=== PATIENT | female | born 1995 | race Two or more races ===

== ENCOUNTER 2016-07-19 18:47 | Emergency (ER) | payer MEDICAID ==
[~2016-07-19] VITALS: Ht 154.9 cm; Wt 59.0 kg
[~2016-07-19 18:47] MED LIST: AMOXICILLIN500 MG ORAL; CEPHALEXIN500 MG ORAL; CIPROFLOXACIN500 M2 ORAL; IBUPROFEN600 MG ORAL; METRONIDAZOLE500 MG ORAL; NKM; NORCO 5-325 TA1 EACH ORAL; PROMETHAZINE-P118 M1 PO; TYLENOL325 MG ORAL; ZITHROMAX250 MG ORAL
[2016-07-19 20:35] LABS: APPEARANCE,URINE CLOUDY; KETONES,URINE NEGATIVE (NEGATIVE); LEUKOCYTE ESTERASE ,URINE 3+ (NEGATIVE); NITRITE,URINE POSITIVE (NEGATIVE); PH,URINE 8 (4.5-8.0); PROTEIN,URINE 1+ (NEGATIVE); UROBILINOGEN,URINE NORMAL MG/DL (0.0-1.0)
[2016-07-19] MEDS ORDERED: Azithromycin 250mg tab ORAL ONE (20:45)
[2016-07-19] MEDS ORDERED: NITROFURANTOIN100 M2 ORAL (20:45)
[2016-07-19] MEDS ORDERED: Lidocaine 1% MPF 10mg/ml 5ml ONE (20:52)
[2016-07-19 20:53] LABS: AMORPHOUS SEDIMENT,UR MANY /LPF; BACTERIA,URINE MANY /HPF; RBC,URINE 0-2 /HPF (0 - 2); SQUAMOUS EPITHELIAL CELL,UR OCCASIONAL /LPF (NONE/OCC); WBC,URINE 40-60 /HPF (0 - 2)
[2016-07-19 20:54] LABS: TRIPLE PHOSPHATE CRYSTAL,UR FEW /LPF
[2016-07-19 21:04] VITALS: BP 105/69
--- NOTE | 2016-07-19 22:33 | Emergency Room Report ---
History of Present Illness General Chief Complaint: Female Urogenital Problems Source: Patient Present Illness HPI The patient is a 21-year-old female presenting with dysuria and vaginal discharge which began one week prior. The patient states that she experiences an 8/10 burning sensation to the vaginal area which occurs only with urination. The patient has also experienced a green vaginal discharge. The patient has been active with one male partner but denies knowing if the patient has an STD. The patient denies any abdominal or flank pain. Patient denies nausea, vomiting, fever, chills, hematuria Allergies: Coded Allergies: No Known Allergies (Unverified , 10/17/13) Patient History Past Medical History: see triage record Pertinent Family History: none Last Menstrual Period: 07/04/16 Now: No Reviewed Nursing Documentation: PMH: Agreed, PSxH: Agreed Nursing Documentation-PMH Hx Gastrointestinal Problems: Yes - KIDNEY STONE Review of Systems All Other Systems: negative except mentioned in HPI Physical Exam Vital Signs Date Time Temp Pulse Resp B/P Pulse Ox O2 Delivery O2 Flow Rate FiO2 07/19/16 19:29 97.9 79 15 105/69 100 Room Air Sp02 EP Interpretation: reviewed, normal General Appearance: no apparent distress, alert, GCS 15, non-toxic Head: normocephalic, atraumatic Eyes: bilateral eye PERRL, bilateral eye normal inspection ENT: hearing grossly normal, normal pharynx, no angioedema, normal voice Neck: full range of motion, supple/symm/no masses Gastrointestinal: normal bowel sounds, soft, non-distended, no guarding, no rebound, tenderness - Epigastric Genitourinary: normal inspection, no CVA tenderness Musculoskeletal: back normal, gait/station normal, normal range of motion, non- tender Neurologic: alert, oriented x3, responsive, motor strength/tone normal, sensory intact, speech normal Psychiatric: judgement/insight normal, memory normal, mood/affect normal, no suicidal/homicidal ideation Skin: normal color, no rash, warm/dry, well hydrated Lymphatic: no adenopathy Medical Decision Making PA Attestation Dr. Heranndez is my supervising physician. Patient management was discussed with my supervising physician Diagnostic Impression: Primary Impression: UTI (urinary tract infection) ER Course The patient is a 21-year-old female presenting with dysuria and vaginal discharge which began one week prior. Differential diagnosis considered but not limited to: UTI, vaginitis, pyelonephritis, pyelonephrosis, STD, PID, ectopic PE: Vitals within normal limits. No apparent distress. Abdominal exam is remarkable for suprapubic tenderness. Otherwise exam is unremarkable The patient is treated for STD with azithromycin and Rocephin. Urinalysis is consistent with UTI The patient will be discharged home with a prescription for Macrobid. ER precautions are given Laboratory Tests Test 07/19/16 19:43 Urine Color Pale yellow Urine Appearance Cloudy Urine pH 8 (4.5-8.0) Urine Specific [place] 1.015 (1.005-1.035) Urine Protein 1+ (NEGATIVE) H Urine Glucose (UA) Negative (NEGATIVE) Urine Ketones Negative (NEGATIVE) Urine Occult Blood 1+ (NEGATIVE) H Urine Nitrite Positive (NEGATIVE) H Urine Bilirubin Negative (NEGATIVE) Urine Urobilinogen Normal MG/DL (0.0-1.0) Urine Leukocyte Esterase 3+ (NEGATIVE) H Urine RBC 0-2 /HPF (0 - 2) Urine WBC 40-60 /HPF (0 - 2) H Urine Squamous Epithelial Cells Occasional /LPF Urine Triple Phosphate Crystals Few /LPF (NONE) H Urine Amorphous Sediment Many /LPF (NONE) H Urine Bacteria Many /HPF (NONE) H Urine HCG, Qualitative Negative Lab Results Impression Positive nitrites and many white blood cells with many bacteria Last Vital Signs Date Time Temp Pulse Resp B/P Pulse Ox O2 Delivery O2 Flow Rate FiO2 07/19/16 21:04 97.8 79 15 105/69 100 Room Air Status: improved Disposition: HOME, SELF-CARE Condition: Improved Scripts Nitrofurantoin Monohyd/M-Cryst* (MACROBID 100 MG*) 100 Mg Capsule 100 MG ORAL EVERY 12 HOURS, #14 CAP Prov: EMORY COONEY 07/19/16 Referrals: [facility],REFERR[facility] (PCP) Patient Instructions: Urinary Tract Infection Additional Instructions: I discussed my findings with the patient. All questions and concerns have been answered. Treatment and medication compliance have been addressed. I advised the patient that they need to follow up with PMD in 3-5 days. Return to ED if symptoms worsen, new symptoms arise, or if needed for any reason. Patient verbalized understanding of discharge instructions. EMORY COONEY Jul 19, 2016 22:33
== END 2016-07-19 21:08 | disposition home or self-care (01) ==
LOC: EMR 20:55
DX: N39.0 Urinary tract infection, site not specified (principal); Z87.442 Personal history of urinary calculi
CPT/HCPCS: 81003; 81025; 87086; 87181; 96372; 99283; J0696; Q0144

== ENCOUNTER 2017-10-05 13:47 | Emergency (ER) | payer MEDICAID ==
[~2017-10-05] VITALS: Ht 157.5 cm; Wt 59.0 kg
[~2017-10-05 13:47] MED LIST changes: +NITROFURANTOIN100 M2 ORAL
[2017-10-05] MEDS ORDERED: Norco 5mg/325mg tab ORAL ONE (14:30)
[2017-10-05] MEDS ORDERED: IBUPROFEN600 MG ORAL (15:17)
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
[2017-10-05 15:20] VITALS: BP 113/70
[2017-10-05 15:50] VITALS: BP 113/70
--- NOTE | 2017-10-05 15:58 | Diagnostic Imaging Report ---
Indications:Right elbow pain Technique: 3 views of the right elbow Comparison: None Findings: No acute fractures. No dislocations. No effusion. The joint spaces are preserved. No radiopaque foreign body Impression: Negative
== END 2017-10-05 15:50 | disposition home or self-care (01) ==
LOC: EMR 14:42
DX: M25.521 Pain in right elbow (principal); S50.01XA Contusion of right elbow, initial encounter; V43.52XA Car driver injured in collision with other type car in traffic accident, initial encounter; Y92.481 Parking lot as the place of occurrence of the external cause; Z87.442 Personal history of urinary calculi
CPT/HCPCS: 99283

== ENCOUNTER 2018-09-27 18:17 | Emergency (ER) | payer MEDICAID ==
[~2018-09-27] VITALS: Ht 152.4 cm; Wt 54.4 kg
[~2018-09-27 18:17] MED LIST changes: +ALBUTEROL SULF8.5 GM INH; +PROMETHAZINE-C118 M1 ORAL; +ROBITUSSIN NIG237 ML PO; +TAMIFLU75 MG ORAL; +TYLENOL EXTRA500 MG ORAL
[2018-09-27 18:31] VITALS: BP 121/43
--- NOTE | 2018-09-27 18:36 | Emergency Room Report ---
History of Present Illness General Chief Complaint: Vaginal Source: Patient Present Illness HPI Is a 23-year-old female presented after increased vaginal bleeding. Patient reports having been approximately 7 weeks. She states that she had onset of bleeding approximately 4:00 this afternoon. She reports having increased abdominal cramping and bleeding which had somewhat improved. She states she passed some products. She reports having improvement in the bleeding subsequently. She states she had recent blood test done at an [facility]. Allergies: Coded Allergies: No Known Allergies (Unverified , 10/17/13) Patient History Past Medical History: see triage record Last Menstrual Period: aug 12 Now: Yes : 1 Reviewed Nursing Documentation: PMH: Agreed; PSxH: Agreed Nursing Documentation-PMH Past Medical History: No History, Except For Hx Gastrointestinal Problems: Yes - KIDNEY STONE, Review of Systems All Other Systems: negative except mentioned in HPI Physical Exam Vital Signs Date Time Temp Pulse Resp B/P (MAP) Pulse Ox O2 Delivery O2 Flow Rate FiO2 09/27/18 18:19 98.4 72 20 121/43 98 Room Air Sp02 EP Interpretation: reviewed, normal General Appearance: normal inspection, well appearing, no apparent distress, alert, GCS 15, non-toxic Head: atraumatic ENT: normal ENT inspection, hearing grossly normal, normal voice Neck: normal inspection, full range of motion, supple, no bony tend Respiratory: normal inspection, lungs clear, normal breath sounds, no respiratory distress, no retraction, no wheezing Cardiovascular #1: regular rate, rhythm, no edema Gastrointestinal: normal inspection, normal bowel sounds, non tender, soft, no guarding, no hernia Genitourinary: no CVA tenderness Musculoskeletal: normal inspection, back normal, normal range of motion Neurologic: normal inspection, alert, oriented x3, responsive, street worker III-XII nml as tested, speech normal Psychiatric: normal inspection, judgement/insight normal, mood/affect normal Skin: normal inspection, normal color, no rash Medical Decision Making Diagnostic Impression: Primary Impression: Threatened ER Course Patient presented for abdominal cramping and vaginal bleeding. Differential diagnosis include was not limited to completed , incomplete among others. Because of complexity of patient's case imaging studies were ordered. Patient was noted to have recent reported substance use. She states she had been at a [facility] and had taken some unknown type of pill and subsequently began vomiting. Patient was noted to have refused blood testing as well as ultrasound testing. Patient appears to be capable of self-care and does not appear to be confused or have any altered mental status. Patient subsequently decided to leave the hospital without any imaging or laboratory testing. Patient declined further treatment despite risks of disability and loss of current lifestyle. Last Vital Signs Date Time Temp Pulse Resp B/P (MAP) Pulse Ox O2 Delivery O2 Flow Rate FiO2 09/27/18 18:19 98.4 72 20 121/43 98 Room Air Status: unchanged Disposition: AGAINST MEDICAL ADVICE Miquel Ellis MD Sep 27, 2018 18:35
--- NOTE | 2018-09-27 18:44 | NUR ---
ED Nurse Note:pt. came with lower abd cramping and vaginal bleeding, a few weeks , pt. refused provide urine at this time she said she has none
[2018-09-27 19:06] VITALS: BP 121/43
--- NOTE | 2018-09-27 19:07 | NUR ---
ED Nurse Note:pt. decided to go home AMA because she didn't want anything to be done in ER, notified ,pt. signed AMA form and left ER condition stable A/Ox4
== END 2018-09-27 19:06 | disposition left against medical advice (07) ==
LOC: EMR 18:57
DX: O20.0 Threatened abortion (principal); Z3A.01 Less than 8 weeks gestation of pregnancy
CPT/HCPCS: 99282

== ENCOUNTER 2018-11-14 22:43 | Inpatient (IN) | payer MEDICAID ==
[~2018-11-14] VITALS: Ht 154.9 cm; Wt 54.4 kg
--- NOTE | 2018-11-14 23:10 | NUR ---
ED Nurse Note: Received report. Pt from home, AAOx4, ambulatory, c/o low back pain 03/28 with hematuria. Will assess and carry out ER MD's orders.
[2018-11-14 23:15] VITALS: BP 115/83
--- NOTE | 2018-11-14 23:42 | Emergency Room Report ---
History of Present Illness General Chief Complaint: Back Pain-No Injury Source: Patient Present Illness HPI Patient presents with right flank pain fevers chills nausea without vomiting for several days. She's had multiple urinary tract infections. She has some hematuria and is worried that she's going to kidney failure. She's had kidney failure in the past. She has frequency and dysuria. Slight headache. Pain is listed 10/10, severe, aching. Her last period was in July. She had a miscarriage in September. She's not had another menstruation since that time. She doesn't feel that she's at this time. No sore throat, cough, dyspnea, chest pain, palpitations, rashes, joint pain. Allergies: Coded Allergies: No Known Allergies (Unverified , 11/14/18) Patient History Past Medical History: see triage record Social History: Denies: smoking Social History Narrative with significant other Last Menstrual Period: 09-30-2013 MISCARRIAGE Now: No Nursing Documentation-PM Past Medical History: No Stated History Hx Gastrointestinal Problems: Yes - KIDNEY STONE, Physical Exam Vital Signs Date Time Temp Pulse Resp B/P (MAP) Pulse Ox O2 Delivery O2 Flow Rate FiO2 11/14/18 23:01 99.1 95 20 115/83 (94) 98 Room Air Medical Decision Making Diagnostic Impression: Primary Impression: Pyelonephritis Additional Impression: Hydronephrosis Qualified Codes: N13.30 - Unspecified hydronephrosis ER Course Patient presents with fevers chills hematuria and flank pain. Differential includes pyelonephritis, renal stone, sepsis amongst others. We need to exclude pregnanc patient will be evaluated with labs. Also renal ultrasound will be performed. Patient retreated with IV hydration and analgesia. U/S - L hydro. UTI (Of note, pain was R flank) Antibiotics ordered. Admit med. Discussed with Dr. Aldrich almond huller for Dr. Mary. Patient states pain free. Patient states wants to go home. Discussed risk of from sepsis. She understands and agrees to stay. Consideration of possible passing of renal stone. Laboratory Tests Test 11/14/18 23:05 11/15/18 00:43 Urine Color Yellow Urine Appearance Slightly cloudy Urine pH 6.5 (4.5-8.0) Urine Specific [place] 1.010 (1.005-1.035) Urine Protein 2+ (NEGATIVE) H Urine Glucose (UA) Negative (NEGATIVE) Urine Ketones 3+ (NEGATIVE) H Urine Blood 2+ (NEGATIVE) H Urine Nitrite Positive (NEGATIVE) H Urine Bilirubin Negative (NEGATIVE) Urine Urobilinogen 4 MG/DL (0.0-1.0) H Urine Leukocyte Esterase 3+ (NEGATIVE) H Urine RBC 5-10 /HPF (0 - 2) H Urine WBC 30-40 /HPF (0 - 2) H Urine Squamous Epithelial Cells Few /LPF (NONE/OCC) Urine Bacteria Many /HPF (NONE) H Urine HCG, Qualitative Negative (NEGATIVE) White Blood Count 7.0 K/UL (4.8-10.8) Red Blood Count 4.74 M/UL (4.20-5.40) Hemoglobin 13.7 G/DL (12.0-16.0) Hematocrit 41.1 % (37.0-47.0) Mean Corpuscular Volume 87 FL (80-99) Mean Corpuscular Hemoglobin 28.9 PG (27.0-31.0) Mean Corpuscular Hemoglobin Concent 33.4 G/DL (32.0-36.0) Red Cell Distribution Width 11.3 % (11.6-14.8) L Platelet Count 289 K/UL (150-450) Mean Platelet Volume 6.2 FL (6.5-10.1) L Neutrophils (%) (Auto) 67.3 % (45.0-75.0) Lymphocytes (%) (Auto) 20.6 % (20.0-45.0) Monocytes (%) (Auto) 10.8 % (1.0-10.0) H Eosinophils (%) (Auto) 0.3 % (0.0-3.0) Basophils (%) (Auto) 0.9 % (0.0-2.0) Prothrombin Time 11.9 SEC (9.30-11.50) H Prothrombin Time INR 1.1 (0.9-1.1) PTT 32 SEC (23-33) Sodium Level 139 MMOL/L (136-145) Potassium Level 3.4 MMOL/L (3.5-5.1) L Chloride Level 102 MMOL/L (98-107) Carbon Dioxide Level 26 MMOL/L (21-32) Anion Gap 11 mmol/L (5-15) Blood Urea Nitrogen 8 mg/dL (7-18) Creatinine 0.7 MG/DL (0.55-1.30) Estimate Glomerular Filtration Rate > 60 mL/min (>60) Glucose Level 93 MG/DL (74-106) Calcium Level 9.1 MG/DL (8.5-10.1) Total Bilirubin 0.3 MG/DL (0.2-1.0) Aspartate Amino Transferase (AST) 13 U/L (15-37) L Alanine Aminotransferase (ALT) 21 U/L (12-78) Alkaline Phosphatase 84 U/L (46-116) Total Protein 8.3 G/DL (6.4-8.2) H Albumin 3.9 G/DL (3.4-5.0) Globulin 4.4 g/dL Albumin/Globulin Ratio 0.9 (1.0-2.7) L Lipase 130 U/L (73-393) CT/MRI/US Diagnostic Results CT/MRI/US Diagnostic Results : Imaging Test Ordered: renal u/s Impression Left hydronephrosis Last Vital Signs Date Time Temp Pulse Resp B/P (MAP) Pulse Ox O2 Delivery O2 Flow Rate FiO2 11/15/18 09:00 Room Air 11/15/18 08:36 99.7 87 18 103/73 (83) 98 Status: improved Disposition: ADMITTED INPATIENT Condition: Serious Tommy Hylton MD November 14, 2018 23:42
[2018-11-14] MEDS ORDERED: DiphenhydrAMINE 50mg/ml Inj IVP ONE (23:45)
[2018-11-14] MEDS ORDERED: Metoclopramide 10mg/2ml Inj IVP ONE (23:45)
[2018-11-14] MEDS ORDERED: Morphine Sulfate 4mg/ml Inj (IV USE ONLY) IVP ONE (23:45)
[2018-11-14 23:58] LABS: APPEARANCE,URINE SLIGHTLY CLOUDY; BILIRUBIN, URINE NEGATIVE (NEGATIVE); COLOR,URINE YELLOW; GLUCOSE, URINE (UA) NEGATIVE (NEGATIVE); KETONES,URINE 3+ (NEGATIVE); LEUKOCYTE ESTERASE ,URINE 3+ (NEGATIVE); NITRITE,URINE POSITIVE (NEGATIVE); PH,URINE 6.5 (4.5-8.0); PROTEIN,URINE 2+ (NEGATIVE); UROBILINOGEN,URINE 4 MG/DL (0.0-1.0)
[2018-11-15] VITALS (7 sets, daily range): BP systolic 103–126; BP diastolic 73–86
[2018-11-15 01:15] LABS: BASOPHILS % (AUTO) 0.9 % (0.0-2.0); EOSINOPHILS % (AUTO) 0.3 % (0.0-3.0); HEMATOCRIT 41.1 % (37.0-47.0); HEMOGLOBIN 13.7 G/DL (12.0-16.0); LYMPHOCYTES % (AUTO) 20.6 % (20.0-45.0); MEAN CORPUSCULAR VOLUME 87 FL (80-99); MONOCYTES % (AUTO) 10.8 % (1.0-10.0); NEUTROPHILS % (AUTO) 67.3 % (45.0-75.0); PLATELET COUNT 289 K/UL (150-450); RED BLOOD COUNT 4.74 M/UL (4.20-5.40); RED CELL DISTRIBUTION WIDTH 11.3 % (11.6-14.8)
[2018-11-15 01:27] LABS: ANION GAP 11 mmol/L (5-15); BLOOD UREA NITROGEN 8 mg/dL (7-18); CALCIUM 9.1 MG/DL (8.5-10.1); CARBON DIOXIDE 26 MMOL/L (21-32); CHLORIDE 102 MMOL/L (98-107); CREATININE 0.7 MG/DL (0.55-1.30); POTASSIUM 3.4 MMOL/L (3.5-5.1); SODIUM 139 MMOL/L (136-145)
[2018-11-15 01:28] LABS: INR 1.1 (0.9-1.1)
[2018-11-15 01:31] LABS: ALANINE AMINOTRANSFERASE 21 U/L (12-78); ALBUMIN 3.9 G/DL (3.4-5.0); ALBUMIN/GLOBULIN RATIO 0.9 (1.0-2.7); ALKALINE PHOSPHATASE 84 U/L (46-116); ASPARTATE AMINO TRANSFERASE 13 U/L (15-37); BILIRUBIN,TOTAL 0.3 MG/DL (0.2-1.0)
[2018-11-15] MEDS ORDERED: cefTRIAXone 1 GM in NS 55 ML IVPB ONE (01:45)
--- NOTE | 2018-11-15 05:00 | NUR ---
NURSE NOTES: RECEIVED PT FROM ER, REPORT GIVEN BY LAURA DELGADO. PT IS IN STABLE CONDITION, DENIES PAIN AT THE MOMENT, NO ACUTE DISTRESS NOTED. SKIN INTACT. IV NOTED ON L AC INTACT AND PATENT. ORIENTED PT TO ROOM. ADMISSION ORDERS RECEIVED FROM . BED IS LOCKED AT THE LOWEST POSITION, BED ALARMS ACTIVE, SIDE RAILS UP X2, AND CALL LIGHT IS WITHIN REACH. WILL CONTINUE TO MONITOR.
--- NOTE | 2018-11-15 05:09 | NUR ---
TRANSFER TO FLOOR: Patient transferred to [facility] as ordered, per MD Courtney. Report given to Sharla, RN. Belongings and medications given to Sharla, RN. Family and S/O informed of transfer by pt.
[2018-11-15] MEDS ORDERED: HYDROcodone/Acetamin 5/325 tab ORAL PRN ×2 (06:15)
[2018-11-15 07:04] LABS: ANION GAP 8 mmol/L (5-15); BLOOD UREA NITROGEN 6 mg/dL (7-18); CALCIUM 7.5 MG/DL (8.5-10.1); CARBON DIOXIDE 24 MMOL/L (21-32); CHLORIDE 107 MMOL/L (98-107); CREATININE 0.7 MG/DL (0.55-1.30); POTASSIUM 3.7 MMOL/L (3.5-5.1); SODIUM 139 MMOL/L (136-145)
[2018-11-15 07:15] LABS: BASOPHILS % (AUTO) 0.9 % (0.0-2.0); EOSINOPHILS % (AUTO) 0.6 % (0.0-3.0); HEMOGLOBIN 11.3 G/DL (12.0-16.0); LYMPHOCYTES % (AUTO) 23.4 % (20.0-45.0); MEAN CORPUSCULAR VOLUME 87 FL (80-99); MONOCYTES % (AUTO) 12.6 % (1.0-10.0); NEUTROPHILS % (AUTO) 62.5 % (45.0-75.0); PLATELET COUNT 223 K/UL (150-450); RED BLOOD COUNT 3.81 M/UL (4.20-5.40); RED CELL DISTRIBUTION WIDTH 11.3 % (11.6-14.8); WHITE BLOOD COUNT 5.7 K/UL (4.8-10.8)
--- NOTE | 2018-11-15 07:30 | NUR ---
HAND-OFF: Report given to LAURA MORRISSEY.
--- NOTE | 2018-11-15 07:56 | NUR ---
NURSE NOTES: Patient alert x4; on room air, no sign of distress and shortness of breath; no sing of chest pain; IV LAC NS 100cc running; bed at lowest position, side rails up, breaks engaged; call light within reach; will keep monitoring.
[2018-11-15] MEDS: Cefepime HCl 1 GM in D5W 55 ML IVPB SCH ×2 (08:43→20:34)
--- NOTE | 2018-11-15 08:44 | NUR ---
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 ER CC:BACK PAIN- NO INJURY SI:HYDRONEPHROSIS . PYELONEPHRITIS . UTI VS: BP 115/83. P 95, T 99.1, RR 20, SpO2 98 RBC 3.81, H&H 11.3/33.0, K 3.4, AST 13, URINE: Ketones 3+, Blood 2+, Nitrite-Positive, Bacteria-Many IS:NS x1L IV MORPHINE 4mg IVP REGLAN 10mg IVP ADMITTED TO MED/SURG DCP: RETURN HOME
--- NOTE | 2018-11-15 11:33 | Diagnostic Imaging Report ---
Indication: Flank pain, hematuria Technique: Grayscale and duplex images of the kidneys, retroperitoneum, and bladder were obtained. Comparison: none Findings: Right kidney measures 11.8 cm in length. Left kidney measures 12 cm in length. Both kidneys demonstrate normal echogenicity. The left kidney demonstrates moderate to severe hydronephrosis. No hydronephrosis is demonstrated on the right.. No focal abnormality. Normal inferior vena cava. Bladder is normal, except that no left ureteral jet demonstrated. Impression: Moderate to severe left hydronephrosis. Etiology not demonstrated. Consider CT for further evaluation if clinically indicated. This agrees with the preliminary interpretation provided overnight by [employer] teleradiology service.
--- NOTE | 2018-11-15 15:22 | NUR ---
*-* INSURANCE *-* ALL CLINICALS AND REVIEWS HAVE BEEN FAXED TO: [employer]SIE NO SEXTON HELPER ASSIGNED AT THIS TIME PLEASE FAX THE REVIEW/CLINICAL FX: [phone]
--- NOTE | 2018-11-15 19:29 | NUR ---
HAND-OFF: Report given to LAURA Campbell.
--- NOTE | 2018-11-15 19:30 | History and Physical Report ---
DATE OF ADMISSION: 11/15/2018 REASON FOR ADMISSION: Pyelonephritis. HISTORY OF PRESENT ILLNESS: The patient is a very pleasant female presents due to flank pain, fever, chills, and some dysuria. The patient has had prior urinary tract infection and has some hematuria as well. She was noted to have possibility of pyelonephritis last period was in July. She had a miscarriage in September. PAST MEDICAL HISTORY: Notable for miscarriage, prior kidney stones. MEDICATIONS: Reviewed. ALLERGIES: Reviewed. SOCIAL HISTORY: Nonsmoker and nondrinker. PHYSICAL EXAMINATION: GENERAL: A well-developed female, comfortable at present. VITAL SIGNS: Reviewed. Temperature 97, blood pressure 103/78. HEENT: Negative. NECK: Supple LUNGS: Clear. CARDIAC: S1, S2. Regular rate and rhythm. ABDOMEN: Soft. suprapubic tenderness. Mild flank tenderness. EXTREMITIES: No edema. NEUROLOGIC: Grossly nonfocal. LABORATORY DATA: Reviewed both chemistries and CBCs. IMPRESSION: Possible pyelonephritis admitted with flank pain and noted hematuria. RECOMMENDATION: 1. IV hydration. 2. IV antibiotics. 3. ID evaluation. 4. Discharge when the patient improves and stable. Bhavesh Courtney M.D. DR: Lisa JOB#: [id number] CC:
--- NOTE | 2018-11-15 20:01 | NUR ---
NURSE NOTES: Patient in bed, awake, alert and verbally responsive. Able to make needs known. Respiration is even and unlabored. Kept clean and comfortable. No complaint of pain or discomfort at the moment. Abdomen is soft and non distended. Skin is intact, warm and dry to touch. Bed in low and locked position. Provided safe environment. Call light is at bedside. Will continue plan of care.
[2018-11-16 04:00] VITALS: BP 112/66
--- NOTE | 2018-11-16 07:36 | NUR ---
HAND-OFF: Report given to LAURA Obando.
--- NOTE | 2018-11-16 07:56 | NUR ---
NURSE NOTES: Patient is alert and oriented. Patient is resting bed. No reports of discomfort at the moment. Patient is on room air. Side rails are up x2, bed is locked, in lowest position, and call light is within reach. Will continue to monitor.
[2018-11-16 08:00] VITALS: BP 120/68
[2018-11-16] MEDS: Cefepime HCl 1 GM in D5W 55 ML IVPB SCH (08:53)
--- NOTE | 2018-11-16 10:07 | NUR ---
*-* INSURANCE *-* UPDATED CLINICALS HAVE BEEN FAXED TO: [employer]KASSIE NO DAIRY STORE MANAGER ASSIGNED AT THIS TIME PLEASE FAX THE REVIEW/CLINICAL FX: [phone]
[2018-11-16 12:00] VITALS: BP 116/75
--- NOTE | 2018-11-16 16:54 | NUR ---
NURSE NOTES: Discharge order received. ID clearance received. Dr. Victoria to call prescription in to patient's preferred pharmacy [facility] [phone].
--- NOTE | 2018-11-16 17:17 | NUR ---
NURSE NOTES: Patient discharged Home via private vehicle. Belongings reviewed and accounted for. IV removed. ID bracelet removed. Discharge instructions given to patient. Patient stable upon discharge.
--- NOTE | 2018-11-16 17:30 | Consultation ---
DATE OF CONSULTATION: 11/16/2018 INFECTIOUS DISEASES CONSULTATION: CONSULTING PHYSICIAN: Rowena Victoria M.D. REFERRING PHYSICIAN: Bhavesh Courtney M.D. REASON FOR CONSULTATION: Pyelonephritis. HISTORY OF PRESENTING ILLNESS: This is a 23-year-old lady who had a recent miscarriage about a month ago as well as kidney stones who comes in with fever, chills along with right-sided back pain along with nausea and vomiting along with painful urination. There was a concern for pyelonephritis and an Infectious Diseases consultation has been obtained for antibiotics. PAST MEDICAL HISTORY: 1. History of miscarriage. 2. History of kidney stones. SOCIAL HISTORY: She does not smoke, drink, or use drugs. FAMILY HISTORY: Positive for breast cancer in her mother. REVIEW OF SYSTEMS: RESPIRATORY: She had fever and chills. No cough. No shortness of breath or chest pain. CARDIAC: No chest pain. No palpitations. No dizziness. No syncope. GASTROINTESTINAL: She had nausea and vomiting, which improved. She complained of right-sided back pain that is improved. No diarrhea. GENITOURINARY: She had dysuria, but not hematuria. MEDICATIONS: As an inpatient, she is on cefepime, Levaquin, Protonix, Reading, Tylenol, Mylanta. ALLERGIES: No known drug allergies. PHYSICAL EXAMINATION: VITAL SIGNS: Temperature of 97.7, T-max of 99.9, pulse of 74, respiratory rate of 18, blood pressure 112/66, O2 saturation of 98%. HEENT: Pupils equally reactive to light and accommodation. Mouth appears clean without thrush. NECK: Supple. No adenopathy. No JVD. CARDIOVASCULAR: Regular rate and rhythm. No murmurs. LUNGS: Clear to auscultation bilaterally. No crackles. No wheezes. ABDOMEN: Soft and nontender. No organomegaly. No CVA tenderness noted. EXTREMITIES: No cyanosis, no clubbing, no edema. LABORATORY AND DIAGNOSTIC DATA: White count of 5.7, hemoglobin 11.3, hematocrit 33, MCV 87, platelet count of 223, neutrophils of 62%. Sodium 139, potassium 3.7, chloride 107, bicarb 24, BUN 6, creatinine 0.7, glucose 98, calcium 7.5. Total bilirubin 0.3, AST 13, ALT 21, alkaline phosphatase 84. Total protein 8.3. Albumin 3.9. Lipase of 130. UA showing 30 to 40 white cells. Urine culture is growing gram-negative rods. Renal ultrasound showing [id number] left-sided hydronephrosis. ASSESSMENT: This is a 23-year-old lady with history of recent miscarriage and kidney stone who comes in with fever, chills, nausea, vomiting as well as right-sided flank pain and is found to have. 1. Gram-negative urinary tract infection, would be concerned regarding pyelonephritis. 2. [id number]-[id number] left-sided hydronephrosis. PLAN: 1. Continue cefepime. 2. Discontinue Levaquin. 3. We will follow up cultures and adjust antibiotics accordingly. 4. We would suggest a Urology evaluation. I would like to thank Dr. Courtney for this consultation. Rowena Victoria M.D. DR: MAC JOB#: [id number] CC: Bhavesh Courtney M.D.; Fax#: [phone]
--- NOTE | 2018-11-16 19:30 | Consultation ---
DATE OF CONSULTATION: 11/16/2018 UROLOGY CONSULTATION CONSULTING PHYSICIAN: Shay Moe M.D. ATTENDING/REFERRING PHYSICIAN: Bhavesh Courtney M.D. CHIEF COMPLAINT/HISTORY OF PRESENT ILLNESS: I was asked by Dr. Courtney to evaluate this 23-year-old female regarding history of pyelonephritis. The patient has also had previous urinary tract infection and apparently has a history of left-sided hydronephrosis. This was noted on the CT scan done here in 2015 and ultrasound done here during her hospitalization reveals left-sided hydronephrosis again, as such I was asked to evaluate the patient. PAST MEDICAL HISTORY: 1. Nephrolithiasis. 2. Hydronephrosis. 3. Miscarriage. MEDICATIONS: Please see the chart for current medication and administration details. ALLERGIES: No known drug allergies. SOCIAL HISTORY: Unremarkable for tobacco, alcohol, or drug use. FAMILY HISTORY: Noncontributory. REVIEW OF SYSTEMS: A 14-system review of systems unremarkable outside of what was described above. PHYSICAL EXAMINATION: GENERAL: The patient is a young female, resting comfortably, in no obvious distress. HEENT: NC/AT. Oropharynx clear. NECK: Supple. CHEST: Within normal limits. ABDOMEN: Soft, nontender, and nondistended. EXTREMITIES: Warm and well perfused. No cyanosis, clubbing, or edema. NEUROLOGIC: Nonfocal. BACK: Reveals mild CVA tenderness on the right side. LABORATORY DATA: White blood cell count 5.7, hematocrit 33, and platelets 223. PT, PTT and INR within normal limits. Sodium 139, potassium 3.7, chloride 107, bicarbonate 24, BUN 6, and creatinine 0.7. Glucose 98. Calcium 7.5. LFTs within normal limits. Urinalysis - specific gravity 1.010, pH 6.5. Dip test is notable for 2+ protein, 3+ ketones, 2+ blood, positive nitrites, and 3+ leukocyte esterase. Microanalysis with 5 to 10 red and 30 to 40 white blood cells per high-power field, and many bacteria seen. Urine negative. Urine culture with gram-negative bacillus. Identification and susceptibility is pending. DIAGNOSTIC IMAGING: Renal bladder ultrasound reveals left-sided hydronephrosis, etiology is not demonstrated. No hydronephrosis is demonstrated in the right kidney. Previous CT scan here in January 2016 revealed moderate left hydronephrosis and hydroureter without evidence of obstructing calculus. There is a nonobstructing calculus in the left kidney in the lower pole measuring 1 cm. The right kidney is unremarkable. ASSESSMENT AND PLAN: In summary, the patient is a 23-year-old female with a history of urinary tract infection. She presented to the emergency department with right-sided abdominal and flank pain. She has a history of left-sided hydronephrosis dating back to 2016 and a nonobstructing stone on that side, that is the contralateral side from what is currently uncomfortable. An ultrasound again reveals evidence of left-sided hydronephrosis without evidence of an obstruction. Laboratory data is notable for urinary tract infection and a culture is growing gram-negative bacillus with identification and susceptibility is pending. There is no elevation of white blood cell count, creatinine, or other findings. It appears that the patient has urinary tract infection with right-sided pyelonephritis secondary to same. I would treat her with 10 to 14 days of antibiotics between IV and oral therapy to complete her course. When she is afebrile and otherwise stable, she can be discharged home to finish oral therapy. Followup for her left-sided hydronephrosis to evaluate other sources of the same such as reflux, etc. can be done as an outpatient. Thank you for allowing me to participate in the care of this lady. Please do not hesitate to contact me with any questions that you may further have regarding her care. I will see her with you as needed. Shay Moe M.D. DR: KEVIN JOB#: [id number] CC:
--- NOTE | 2018-11-18 11:05 | Discharge Summary ---
Discharge Summary Discharge Summary _ DATE OF ADMISSION: 11/15/2018 DATE OF DISCHARGE: 11/16/2018 DISCHARGED BY: Dr. Courtney REASON FOR ADMISSION: 23 years old female with history of prior kidney stones, urinary tract infection with hematuria, recent miscarriage in September 2018, presented to emergency department with complaint of fever, chills, dysuria, and right flank pain. Upon evaluation in ED patient was afebrile. Laboratory work-up revealed no leukocytosis, hemoglobin and hematocrit were stable. Urinalysis revealed gross evidence of UTI with hematuria. Urine test was negative. Renal ultrasound demonstrated moderate to severe left hydronephrosis. Renal parameters were stable. In the emergency department patient was pancultured , started on broad-spectrum antibiotics antibiotics and subsequently admitted for further management. CONSULTANTS: ID specialist Dr. Victoria urologist Dr. Moe [facility] COURSE: Patient admitted to medical surgical floor and started on IV fluids and empiric antibiotics. Urine culture revealed gram-negative bacilli. Antibiotic regimen optimized as per ID specialist. At the time of this dictation urine culture grew E. coli. Urology consult requested as per ID specialist recommendation. Per urologist patient had left-sided hydronephrosis, dating back to 2015 and non-obstructing stone on that side. However patient experienced discomfort on contralateral side. Ultrasound revealed no evidence of obstruction. Urologist recommended continue 10 to 14 days of IV antibiotics as per ID specialist recommendation. Follow-up as outpatient with urologist for further work-up for left-sided hydronephrosis. Pain management was addressed as needed. Supportive care provided. GI prophylaxis provided. Patient was able to tolerate diet. No fever, no leukocytosis. Patient was stable for discharge home on oral antibiotic to complete the course. Due to rapid and unexpected improvement in patient condition , patient was discharged in 1 day. FINAL DIAGNOSES: E. coli pyelonephritis Moderate to severe left-sided hydronephrosis DISCHARGE MEDICATIONS: ID specialist call prescription to patient's preferred pharmacy DISCHARGE INSTRUCTIONS: Patient was discharged home. Follow up with primary care provider in one week. I have been assigned to dictate discharge summary for this account. I was not involved in the patient's management. Terrie Dhaliwal NP Nov 18, 2018 11:05
== END 2018-11-16 17:00 | disposition home or self-care (01) | DRG 463 ==
LOC: EDBEDREQ 11-15 01:45 → EMR 11-15 02:00 → 4E 11-15 02:09 → EDBEDREQ 11-15 02:32
DX: N12 Tubulo-interstitial nephritis, not specified as acute or chronic (principal); B96.20 Unspecified Escherichia coli [E. coli] as the cause of diseases classified elsewhere; N13.6 Pyonephrosis; Z87.442 Personal history of urinary calculi
CPT/HCPCS: 36415; 76770; 80048; 80053; 81003; 81025; 83605; 83690; 85025; 85610; 85730; 87086; 87181; 96361; 96365; 96368; 96375; 99285; J2765

== ENCOUNTER 2020-04-28 20:11 | Inpatient (IN) | payer MEDICAID ==
[~2020-04-28] VITALS: Ht 154.9 cm; Wt 57.2 kg
[~2020-04-28 20:11] MED LIST changes: +CEPHALEXIN500 M1 ORAL; +GUAIFENESI100 MG/5 M ORAL
[2020-04-28 20:50] VITALS: BP 116/65
[2020-04-28 20:52] LABS: APPEARANCE,URINE SLIGHTLY CLOUDY; BILIRUBIN, URINE NEGATIVE (NEGATIVE); COLOR,URINE PALE YELLOW; GLUCOSE, URINE (UA) NEGATIVE (NEGATIVE); KETONES,URINE NEGATIVE (NEGATIVE); LEUKOCYTE ESTERASE ,URINE 2+ (NEGATIVE); NITRITE,URINE POSITIVE (NEGATIVE); PH,URINE 7 (4.5-8.0); PROTEIN,URINE NEGATIVE (NEGATIVE); UROBILINOGEN,URINE NORMAL MG/DL (0.0-1.0)
[2020-04-28 21:10] LABS: HEMATOCRIT 21.5 % (37.0-47.0); HEMOGLOBIN 7.2 G/DL (12.0-16.0); MEAN CORPUSCULAR VOLUME 89 FL (80-99); PLATELET COUNT 244 K/UL (150-450); RED CELL DISTRIBUTION WIDTH 12.6 % (11.6-14.8); WHITE BLOOD COUNT 7.3 K/UL (4.8-10.8)
[2020-04-28 21:16] LABS: ANION GAP 7 mmol/L (5-15); BLOOD UREA NITROGEN 11 mg/dL (7-18); CALCIUM 8.1 MG/DL (8.5-10.1); CARBON DIOXIDE 25 MMOL/L (21-32); CHLORIDE 106 MMOL/L (98-107); CREATININE 0.8 MG/DL (0.55-1.30); POTASSIUM 3.1 MMOL/L (3.5-5.1); SODIUM 138 MMOL/L (136-145)
[2020-04-28 21:20] LABS: ALANINE AMINOTRANSFERASE 23 U/L (12-78); ALBUMIN 3.4 G/DL (3.4-5.0); ALBUMIN/GLOBULIN RATIO 1.2 (1.0-2.7); ALKALINE PHOSPHATASE 61 U/L (46-116); ASPARTATE AMINO TRANSFERASE 19 U/L (15-37); BILIRUBIN,TOTAL 0.2 MG/DL (0.2-1.0)
--- NOTE | 2020-04-28 21:29 | Emergency Room Report ---
History of Present Illness General Chief Complaint: General Complaint Source: Patient Present Illness HPI 24-year-old here with vaginal bleeding. Patient had an induced medical performed 6 days ago in which she took "some medication" at a clinic. She began to have vaginal bleeding approximately 30 minutes after the medication. Patient says that since then she has been soaking through at least 10 pads per day and passing large amounts of clots. For the past 2 days patient has felt extremely lightheaded and has passed out 2 times. Never hit her head or neck. No focal numbness or weakness. She feels extremely lightheaded now. No fevers, chills, headaches, vision changes, chest pain, palpitation, shortness of breath, back pain, abdominal pain, nausea, vomiting, diarrhea, dysuria. 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 COVID-19 Screening: Negative COVID-19 COVID-19 Testing Source: SELF TEST KIT Patient History Now: No Nursing Documentation-[facility] Past Medical History: No History, Except For Hx Gastrointestinal Problems: Yes - KIDNEY STONE, Review of Systems All Other Systems: negative except mentioned in HPI Physical Exam Vital Signs Date Time Temp Pulse Resp B/P (MAP) Pulse Ox O2 Delivery O2 Flow Rate FiO2 04/28/20 20:19 98.2 120 20 116/65 (82) 98 Room Air Sp02 EP Interpretation: reviewed, normal General Appearance: no apparent distress, alert, non-toxic Head: normocephalic, atraumatic Eyes: bilateral eye normal inspection, bilateral eye PERRL ENT: hearing grossly normal, normal pharynx, no angioedema, normal voice Neck: full range of motion, supple/symm/no masses Respiratory: chest non-tender, lungs clear, normal breath sounds, speaking full sentences Cardiovascular #1: regular rate, rhythm, no edema Cardiovascular #2: 2+ carotid (R), 2+ carotid (L), 2+ radial (R), 2+ radial (L), 2+ dorsalis pedis (R), 2+ dorsalis pedis (L) Gastrointestinal: normal bowel sounds, non tender, soft, non-distended, no guarding, no rebound Rectal: deferred Genitourinary: normal inspection, no CVA tenderness Musculoskeletal: back normal, normal range of motion, gait/station normal, non- tender Neurologic: alert, motor strength/tone normal, oriented x3, sensory intact, responsive, speech normal Psychiatric: judgement/insight normal, memory normal, mood/affect normal, no suicidal/homicidal ideation Skin: other - pale conjunctiva Lymphatic: no adenopathy Medical Decision Making Diagnostic Impression: Primary Impression: Anemia Additional Impressions: Blood loss Vaginal bleeding Syncope ER Course EKG: Sinus rhythm, tachycardic 110 bpm, no ischemia, intervals WNL. No ectopy Rhythm strip: patient monitored for arrhythmias - no malignant dysrhythmias, runs of PVCs, nor pauses noted Total critical care time: Approximately 45 minutes Due to a high probability of clinically significant, life threatening deterioration, the patient required the highest level of preparedness to intervene emergently and I personally spent this critical care time directly and personally managing the patient. This critical care time included obtaining a history, examining the patient, pulse oximetry, ordering and reviewing studies, ordering treatments, evaluating response to treatment and updating management plan as needed, frequent reassessment and discussion with other providers as well as arranging for ultimate disposition. This critical to care time was performed to assess and manage the high probability of life-threatening deterioration that could result in multiorgan failure. This critical care time is separate from the separately billable procedures and treating other patients. Laboratory Tests Test 04/28/20 20:35 04/28/20 20:50 Urine Color Pale yellow Urine Appearance Slightly cloudy Urine pH 7 (4.5-8.0) Urine Specific [place] 1.010 (1.005-1.035) Urine Protein Negative (NEGATIVE) Urine Glucose (UA) Negative (NEGATIVE) Urine Ketones Negative (NEGATIVE) Urine Blood 5+ (NEGATIVE) H Urine Nitrite Positive (NEGATIVE) H Urine Bilirubin Negative (NEGATIVE) Urine Urobilinogen Normal MG/DL (0.0-1.0) Urine Leukocyte Esterase 2+ (NEGATIVE) H Urine RBC 5-10 /HPF (0 - 2) H Urine WBC 15-20 /HPF (0 - 2) H Urine Squamous Epithelial Cells Many /LPF (NONE/OCC) H Urine Bacteria Many /HPF (NONE) H Urine HCG, Qualitative Positive (NEGATIVE) White Blood Count 7.3 K/UL (4.8-10.8) Red Blood Count 2.40 M/UL (4.20-5.40) L Hemoglobin 7.2 G/DL (12.0-16.0) L Hematocrit 21.5 % (37.0-47.0) L Mean Corpuscular Volume 89 FL (80-99) Mean Corpuscular Hemoglobin 29.9 PG (27.0-31.0) Mean Corpuscular Hemoglobin Concent 33.6 G/DL (32.0-36.0) Red Cell Distribution Width 12.6 % (11.6-14.8) Platelet Count 244 K/UL (150-450) Mean Platelet Volume 6.5 FL (6.5-10.1) Neutrophils (%) (Auto) 42.0 % (45.0-75.0) L Lymphocytes (%) (Auto) 51.0 % (20.0-45.0) H Monocytes (%) (Auto) 5.0 % (1.0-10.0) Eosinophils (%) (Auto) 2.0 % (0.0-3.0) Basophils (%) (Auto) % (0.0-2.0) Prothrombin Time 11.0 SEC (9.30-11.50) Prothrombin Time INR 1.0 (0.9-1.1) Activated Partial Thromboplast Time 22 SEC (23-33) L Sodium Level 138 MMOL/L (136-145) Potassium Level 3.1 MMOL/L (3.5-5.1) L Chloride Level 106 MMOL/L (98-107) Carbon Dioxide Level 25 MMOL/L (21-32) Anion Gap 7 mmol/L (5-15) Blood Urea Nitrogen 11 mg/dL (7-18) Creatinine 0.8 MG/DL (0.55-1.30) Estimated Glomerular Filtration Rate > 60 mL/min (>60) Glucose Level 109 MG/DL (74-106) H Calcium Level 8.1 MG/DL (8.5-10.1) L Total Bilirubin 0.2 MG/DL (0.2-1.0) Aspartate Amino Transferase (AST) 19 U/L (15-37) Alanine Aminotransferase (ALT) 23 U/L (12-78) Alkaline Phosphatase 61 U/L (46-116) Total Protein 6.2 G/DL (6.4-8.2) L Albumin 3.4 G/DL (3.4-5.0) Globulin 2.8 g/dL Albumin/Globulin Ratio 1.2 (1.0-2.7) Human Chorionic Gonadotropin, Quant 1283 mIU/mL (1-6) H 24-year-old female here with vaginal bleeding after an induced that was performed medically 6 days ago. Patient was tachycardic in the 130s and had a low blood pressure with a MAP of 62 on arrival to the emergency department. She was immediately placed on the monitor and IV normal saline infusion was started with some resolution of her heart rate and low blood pressure. Patient was pale in appearance. Hemoglobin 7.2. Patient was typed and screened for 2 units of blood and blood transfusion is to be started in the emergency department. Risks and benefits of blood transfusion were discussed with the patient who agreed to the blood transfusion. Patient also had some evidence of urinary tract infection and was started on Rocephin in the emergency department. Transvaginal ultrasound pending at this time. Patient had improvement in her blood pressure after IV fluids. She said that she still felt some mild ongoing bleeding but had slowed down immensely compared to earlier in the day. Patient was given 500 mg of TXA. She will be admitted. Signed out to oncoming physician Dr. Hylton. Last Vital Signs Date Time Temp Pulse Resp B/P (MAP) Pulse Ox O2 Delivery O2 Flow Rate FiO2 04/28/20 20:50 98.2 120 20 116/65 98 Room Air Referrals: NON PHYSICIAN (PCP) Aric Strickland M.D. Apr 28, 2020 21:29
[2020-04-28] MEDS ORDERED: Tranexamic Acid 500 MG in NS 55 ML IVPB ONE (22:00)
[2020-04-28 22:11] VITALS: BP 103/70
[2020-04-28] MEDS ORDERED: cefTRIAXone 1 GM in NS 55 ML IVPB ONE (22:15)
--- NOTE | 2020-04-28 23:10 | Diagnostic Imaging Report ---
EXAM: US Pelvis Transabdominal and Transvaginal, Complete CLINICAL HISTORY: BLD TECHNIQUE: Real-time complete transabdominal and transvaginal pelvic ultrasound with image documentation. Transvaginal imaging was used for better evaluation of the endometrium and adnexa. COMPARISON: No relevant prior studies available. FINDINGS: Uterus/cervix: No IUP. Debris in the lower uterine segment and cervical canal. Endometrium measures 6 mm. Heterogeneous and vascular myometrium. Right ovary: Unremarkable. No mass. Left ovary: Unremarkable. No mass. Free fluid: Small amount of fluid in the pelvis. IMPRESSION: No IUP. Debris in the lower uterine segment and cervical canal.
[2020-04-28 23:20] VITALS: BP 103/53
[2020-04-29] VITALS (7 sets, daily range): BP systolic 91–109; BP diastolic 43–64
[2020-04-29] MEDS ORDERED: Ketorolac 30mg Inj IV ONE
[2020-04-29] MEDS ORDERED: Morphine Sulfate 2mg/ml Inj(IV/IM USE ONLY) IVP ONE (00:30)
--- NOTE | 2020-04-29 06:35 | Consultation ---
History of Present Illness General Chief Complaint: General Complaint Present Illness Allergies: Coded Allergies: No Known Allergies (Unverified , 11/14/18) Medication History No Active Prescriptions or Reported Meds Patient History Healthcare decision maker Resuscitation status Advanced Directive on File Physical Exam Last 24 Hour Vital Signs Date Time Temp Pulse Resp B/P (MAP) Pulse Ox O2 Delivery O2 Flow Rate FiO2 04/29/20 04:00 84 04/29/20 04:00 98.9 90 18 91/55 (67) 99 04/29/20 01:20 99.1 04/29/20 01:12 Room Air 04/29/20 01:02 98 04/29/20 01:00 99.1 99 19 103/60 (74) 100 04/29/20 00:47 99.2 108 16 106/58 99 Room Air 04/29/20 00:41 98.2 04/29/20 00:30 104 18 109/62 99 Room Air 04/28/20 23:20 98.2 109 16 103/53 99 Room Air 04/28/20 22:11 110 20 103/70 98 Room Air 04/28/20 20:50 98.2 120 20 116/65 98 Room Air 04/28/20 20:50 120 20 Room Air 04/28/20 20:19 98.2 120 20 116/65 (82) 98 Room Air Intake and Output 04/28/20 04/29/20 19:00 07:00 Intake Total 2215 ml Balance 2215 ml Intake Oral 100 ml IV Total 2115 ml # Voids 2 Laboratory Tests Test 04/28/20 20:35 04/28/20 20:50 Urine Color Pale yellow Urine Appearance Slightly cloudy Urine pH 7 (4.5-8.0) Urine Specific [place] 1.010 (1.005-1.035) Urine Protein Negative (NEGATIVE) Urine Glucose (UA) Negative (NEGATIVE) Urine Ketones Negative (NEGATIVE) Urine Blood 5+ (NEGATIVE) H Urine Nitrite Positive (NEGATIVE) H Urine Bilirubin Negative (NEGATIVE) Urine Urobilinogen Normal MG/DL (0.0-1.0) Urine Leukocyte Esterase 2+ (NEGATIVE) H Urine RBC 5-10 /HPF (0 - 2) H Urine WBC 15-20 /HPF (0 - 2) H Urine Squamous Epithelial Cells Many /LPF (NONE/OCC) H Urine Bacteria Many /HPF (NONE) H Urine HCG, Qualitative Positive (NEGATIVE) White Blood Count 7.3 K/UL (4.8-10.8) Red Blood Count 2.40 M/UL (4.20-5.40) L Hemoglobin 7.2 G/DL (12.0-16.0) L Hematocrit 21.5 % (37.0-47.0) L Mean Corpuscular Volume 89 FL (80-99) Mean Corpuscular Hemoglobin 29.9 PG (27.0-31.0) Mean Corpuscular Hemoglobin Concent 33.6 G/DL (32.0-36.0) Red Cell Distribution Width 12.6 % (11.6-14.8) Platelet Count 244 K/UL (150-450) Mean Platelet Volume 6.5 FL (6.5-10.1) Neutrophils (%) (Auto) 42.0 % (45.0-75.0) L Lymphocytes (%) (Auto) 51.0 % (20.0-45.0) H Monocytes (%) (Auto) 5.0 % (1.0-10.0) Eosinophils (%) (Auto) 2.0 % (0.0-3.0) Basophils (%) (Auto) % (0.0-2.0) Prothrombin Time 11.0 SEC (9.30-11.50) Prothromb Time International Ratio 1.0 (0.9-1.1) Activated Partial Thromboplast Time 22 SEC (23-33) L Sodium Level 138 MMOL/L (136-145) Potassium Level 3.1 MMOL/L (3.5-5.1) L Chloride Level 106 MMOL/L (98-107) Carbon Dioxide Level 25 MMOL/L (21-32) Anion Gap 7 mmol/L (5-15) Blood Urea Nitrogen 11 mg/dL (7-18) Creatinine 0.8 MG/DL (0.55-1.30) Estimat Glomerular Filtration Rate > 60 mL/min (>60) Glucose Level 109 MG/DL (74-106) H Calcium Level 8.1 MG/DL (8.5-10.1) L Total Bilirubin 0.2 MG/DL (0.2-1.0) Aspartate Amino Transf (AST/SGOT) 19 U/L (15-37) Alanine Aminotransferase (ALT/SGPT) 23 U/L (12-78) Alkaline Phosphatase 61 U/L (46-116) Total Protein 6.2 G/DL (6.4-8.2) L Albumin 3.4 G/DL (3.4-5.0) Globulin 2.8 g/dL Albumin/Globulin Ratio 1.2 (1.0-2.7) Human Chorionic Gonadotropin, Quant 1283 mIU/mL (1-6) H Height (Feet): 5 Height (Inches): 1.00 Weight (Pounds): 126 Medications Current Medications Medications (Trade) Dose Ordered Sig/Soledad Route PRN Reason Start Time Stop Time Status Last Admin Dose Admin Acetaminophen (Tylenol) 650 mg Q4H PRN ORAL Mild Pain (Pain Scale 1-3) 04/29/20 05:30 05/29/20 05:29 Assessment/Plan Assessment/Plan: Hematology Consultation REParthaMD:Deion Harding RFC: Anemia DOS: 04/29/20 ID 24-year-old here with vaginal bleeding. Patient had an induced medical performed 6 days ago in which she took "some medication" at a clinic. She began to have vaginal bleeding approximately 30 minutes after the medication. Patient says that since then she has been soaking through at least 10 pads per day and passing large amounts of clots. For the past 2 days patient has felt extremely lightheaded and has passed out 2 times. Never hit her head or neck. No focal numbness or weakness. She feels extremely lightheaded now. No fevers, chills, headaches, vision changes, chest pain, palpitation, shortness of breath, back pain, abdominal pain, nausea, vomiting, diarrhea, dysuria. 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 COVID-19 Screening: Negative COVID-19 COVID-19 Testing Source: SELF TEST KIT Patient History Now: No Nursing Documentation-[facility] [place] Past Medical History: No History, Except For Hx Gastrointestinal Problems: Yes - KIDNEY STONE, Review of Systems Physical Exam General Appearance: no apparent distress Heent: normocephalic, atraumatic Neck: full range of motion, supple/symm/no masses Respiratory: chest non-tender, lungs clear Cardiovascular: regular rate, rhythm, no edema Gastrointestinal: normal bowel sounds, non tender, soft, non-distended, no g uarding, no rebound Rectal: deferred Genitourinary: normal inspection, no CVA tenderness Neurologic: alert, motor strength/tone normal Psychiatric: judgement/insight normal Skin: other - pale conjunctiva Lymphatic: no adenopathy Labs: reviewed Imaging: noted # Anemia due likely to iron deficiency due to recent , ongoing bleed --> as per senior radiation therapist eval for retained products --> anemia panel with ferritin and iron panel --> 1 unit prbc ordered --> po iron she wants to get OTC # Vaginal bleeding --> recent is noted # Syncope --> from ongoing anemia # Tachycardic 110 bpm, no ischemia, intervals WNL. --> likely compensatory for anemia Appreciate consultation and dw Speedy Ulloa MD Apr 29, 2020 06:34
[2020-04-29 09:38] LABS: BASOPHILS % (AUTO) 0.7 % (0.0-2.0); EOSINOPHILS % (AUTO) 1.5 % (0.0-3.0); HEMATOCRIT 29.7 % (37.0-47.0); HEMOGLOBIN 9.8 G/DL (12.0-16.0); LYMPHOCYTES % (AUTO) 39.3 % (20.0-45.0); MEAN CORPUSCULAR VOLUME 93 FL (80-99); MONOCYTES % (AUTO) 8.4 % (1.0-10.0); NEUTROPHILS % (AUTO) 50.2 % (45.0-75.0); PLATELET COUNT 158 K/UL (150-450); RED CELL DISTRIBUTION WIDTH 13.6 % (11.6-14.8); WHITE BLOOD COUNT 4.8 K/UL (4.8-10.8)
[2020-04-29 10:05] LABS: % IRON SATURATION 35 % (15-50); IRON 82 ug/dL (50-175); TOTAL IRON BINDING CAPACITY 236 ug/dL (250-450)
--- NOTE | 2020-04-29 14:27 | Cardiology Report ---
APPROVED REPORT EKG Measurement Heart [id number] <Conclusion> Sinus tachycardia Otherwise normal ECG
--- NOTE | 2020-04-29 16:30 | History and Physical Report ---
DATE OF ADMISSION: 04/28/2020 HISTORY OF PRESENT ILLNESS: This is a 24-year-old female who came to the emergency room for having vaginal bleeding for one day prior to admission. The patient had of about 12 weeks and has aborted. Her hCG is still high. The patient is currently asymptomatic. She claims she was about to pass out yesterday after bleeding. The patient is currently awake and alert. She has one successful baby about 1-year-old. PAST MEDICAL HISTORY: The patient had another long time ago. MEDICATIONS: None. ALLERGIES: None. FAMILY HISTORY: Noncontributory. SOCIAL HISTORY: Lives at home. REVIEW OF SYSTEMS: The patient is feeling better. No nausea. No vomiting. No abdominal pain. PHYSICAL EXAMINATION: VITAL SIGNS: Blood pressure is 107/46, pulse 91, temperature 98.1. HEENT: NAD. CHEST: Bilaterally clear. CARDIOVASCULAR: Regular rhythm. ABDOMEN: Soft. Positive bowel sounds. Nontender. EXTREMITIES: No edema. LABORATORY DATA: White count 7.3, hemoglobin 7.2, hematocrit 22, platelets 244,000. Chemistry, potassium is 3.1, BUN 11, creatinine 0.8, glucose . Urine is positive for nitrites, 5+ blood, and 2+ leukocyte esterase. ASSESSMENT: 1. . 2. UTI. 3. Hypokalemia. 4. Weakness. 5. History of syncope. PLAN: We will admit on medical floor. The patient [id number], transfuse 1 unit. Check hemoglobin and hematocrit. Consider WATER PUMPER consult. Add antibiotics. Dino Harding M.D. DR: Wilfred JOB#: [id number] CC:
--- NOTE | 2020-04-29 21:15 | Consultation ---
DATE OF CONSULTATION: 04/29/2020 CONSULTING PHYSICIAN: Jackson Osullivan MD HISTORY OF PRESENT ILLNESS: This is a 24-year-old female who is a 3, para 1-0-1-1 that presented to [facility] complaining of history of heavy vaginal bleeding with clot formation. Upon evaluation, the patient was noted to be severely anemic with a hemoglobin of 7 g. Patient is therefore started on blood transfusion. Patient stated that she had an elective termination of . The patient methotrexate as well as Cytotec. Subsequently, patient had heavy bleeding where the patient presented to the emergency room. Patient did not have a chance to follow up in her own clinic where the termination of instruction was given. PAST MEDICAL HISTORY: Noncontributory. PAST SURGICAL HISTORY: Noncontributory. ALLERGIES: Patient has no known drug allergies. OBSTETRICAL HISTORY: Include normal spontaneous vaginal delivery. GYNECOLOGICAL HISTORY: Noncontributory. SOCIAL HISTORY: Noncontributory. FAMILY HISTORY: Noncontributory. PHYSICAL EXAMINATION: VITAL SIGNS: On presentation, vital signs are stable. CARDIOVASCULAR: Regular rate and rhythm. LUNGS: Clear to auscultation. ABDOMEN: Soft. PELVIC: Patient declined pelvic examination. EXTREMITIES: No cyanosis, edema, or clubbing. IMAGING: Ultrasound revealed no evidence of intrauterine with clots and debris in the lower uterine segment. Possibility of retained products of conception. ASSESSMENT: At this time is status post termination of with history of heavy vaginal bleeding, status post blood transfusion with possibility of retained. Patient was recommended to undergo dilation and curettage; however, patient does not desire and desired to be discharged to follow up with her own clinic. Patient understands by leaving there is possibility of further bleeding and/or infection. Despite of this, patient still desires to be discharged to follow up. I thank you for this consultation. Patient was further instructed to follow up in the clinic as soon as possible. Jackson Osullivan M.D. DR: TROY JOB#: [id number] CC:
--- NOTE | 2020-05-01 08:26 | Discharge Summary ---
Discharge Summary Discharge Summary _ DATE OF ADMISSION: 04/28/2020 DATE OF DISCHARGE: 04/29/2020 DISCHARGED BY: Dr. Harding REASON FOR ADMISSION: 24 years old female G2, P1, presented with abdominal pain and bleeding. Patient had induced medical 6 days ago, after she took some medication at the clinic. She started to have vaginal bleeding approximately 30 minutes after the medication. Since that she was soaking at least 10 pads per day and passing large amount of clots. For the past 2 days patient was extremely lightheaded and passed out 2 times. She denied hitting her head or neck. No focal numbness or weakness. She reported being extremely lightheaded at the time of presentation. No fever or chills. No headache or vision changes. No chest pain, shortness of breath or palpitation. No abdominal pain , nausea , vomiting, diarrhea or dysuria. Upon evaluation patient was tachycardic , otherwise no fever, pulse oximetry was stable on room air . Laboratory work-up revealed hemoglobin 7.2 , hematocrit 21.5, no leukocytosis , stable platelet count. Potassium 3.1 , otherwise stable electrolytes and renal parameters. hCG 1283 , stable LFT. Urinalysis revealed pyuria , many bacteria. EKG revealed sinus tachycardia no acute ischemic changes . Pelvic and transvaginal ultrasound revealed no intrauterine . Debris in the lower uterine segment and cervical canal. In emergency department patient typed and crossed Since ultrasound revealed possible tissue in the cervix, exam was done, clot material was removed from the cervix, but no obvious tissue was present . Patient was typed and crossed , started on blood transfusion and received empiric antibiotic , analgesic and antiemetic, and subsequently admitted for further management CONSULTANTS: SECURITY OFFICER SUPERVISOR Dr. Osullivan soft iron inspector/oncologist Dr. Maddox, HOSPITAL COURSE: Patient admitted to medical surgical floor. Patient received total of 2 units of packed red blood cells . The next day hemoglobin 9.8 , hematocrit 29.7 . Heavy bleeding stopped. Potassium was replaced . SECURITY OFFICER SUPERVISOR seen and evaluated patient . Patient s/p recent termination of and possibility of retained products of conception. Patient was recommended to undergo dilatation and curettage , but patient declined and wanted to go home and follow-up with her own [facility] clinic . hCG down to 848 the next day. Urine culture revealed E coli. Patient understood there was a possibility of further bleeding or infection . Diamond Grader seen and evaluated patient. Anemia workup was consistent with anemia of iron deficiency. Diamond Grader recommended oral iron upon discharge. Patient subsequently was discharged home with follow-up with [facility]. FINAL DIAGNOSES: Anemia due to the blood loss secondary to heavy vaginal bleeding Iron deficiency anemia Status post recent termination of , possible retained products UTI Hypokalemia Syncope due to anemia and vaginal bleeding DISCHARGE MEDICATIONS: See Medication Reconciliation list. DISCHARGE INSTRUCTIONS: Patient was discharged home. Follow up with outpatient [facility]. I have been assigned to dictate discharge summary for this account. I was not involved in the patient's management. Terrie Dhaliwal NP May 01, 2020 08:26
== END 2020-04-29 18:35 | disposition home or self-care (01) | DRG 564 ==
LOC: EMR 20:45 → 2E 22:26 → EDBEDREQ 23:57 → 3E 04-29 14:25
PROC: 30233N1 Transfusion of Nonautologous Red Blood Cells into Peripheral Vein, Percutaneous Approach (ICD-10-PCS; principal; 2020-04-28)
DX: O04.6 Delayed or excessive hemorrhage following (induced) termination of pregnancy (principal); D50.0 Iron deficiency anemia secondary to blood loss (chronic); N39.0 Urinary tract infection, site not specified; E87.6 Hypokalemia; R53.1 Weakness; R55 Syncope and collapse; R00.0 Tachycardia, unspecified
CPT/HCPCS: 36415; 36430; 76830; 76856; 80053; 81003; 81025; 82728; 83540; 83550; 84702; 85025; 85610; 85730; 86850; 86900; 86901; 86920; 87086; 87181; 93005; 96365; 96368; 96375; 99291; J2405; J7030; J8499; U0002